=== PATIENT | male | born 2005 | race Caucasian/White ===

== ENCOUNTER 2023-11-01 22:39 | Emergency (ER) | payer OTHER ==
[2023-11-01] MEDS ORDERED: Acetaminophen 500 MG TAB ONE (23:17)
[2023-11-01] MEDS ORDERED: Ondansetron ODT 4 MG TAB ONE (23:18)
== END 2023-11-02 03:18 | disposition home or self-care (01) ==
LOC: ERS 22:39
DX: S09.90XA Unspecified injury of head, initial encounter (principal); W21.03XA Struck by baseball, initial encounter; Y93.64 Activity, baseball
CPT/HCPCS: 70450; Q0162